=== PATIENT | male | born 1970 | race Caucasian/White ===

== ENCOUNTER 2019-12-21 19:22 | Emergency (ER) | payer SELFPAY ==
--- OUTSIDE RECORDS SUMMARY | 2019-12-21 19:42 | XMS REPORT | Continuity of Care Document ---
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 Onset: 07/01/2014 without complication Essential hypertension Onset: 12/17/2013 Arthropathy Onset: 12/17/2013 Social History Type Date Description Comments Sex Unknown ETOH Use Rarely consumes alcohol Tobacco Use Start: Unknown Patient is a current 3 times daily, Chews smoker, smokes every day Tobacco Daily Recreational Drug Use Denies Drug Use Exercise Type/Frequency Exercises regularly Allergies, Adverse Reactions, Alerts Active Allergies Reaction Severity Comments Date Penicillins 11/10/2018 Diphenhydramine 11/10/2018 Medications Active Medications SIG Qnty Indications Ordering Date Provider Cpap Mask And Supplies use nightly 1units Heron 02/28/2019 MD Manuel Device Diltiazem HCL ER Beads one daily 90caps I10 Heron 09/07/2018 360mg MD Manuel Caps ER 24HR Fluticasone Propionate 2 puffs each 1units Heron 03/10/2015 nare every in MD Manuel 50mcg/Act Suspension the morning Naproxen 1 by mouth 60tabs 885.0 Heron 01/25/2014 500mg Tablets twice a day MD Manuel Lisinopril-Hydrochloroth 1 by mouth 90tabs I10 Heron 12/17/2013 iazide every day MD Manuel 20-25mg Tablets Methylphenidate HCL 1 twice a day 60tabs F90.0 Heron 09/07/2013 20mg MD Manuel Tablets Immunizations CPT Code Status Date Vaccine Lot # [id number] Given 07/28/2011 Tdap - Tetanus/Diptheria/Acellular Pertussis Vital Signs Date Vital Result Comment 12/04/2019 8:10am Height 74 inches 6'2" Weight 280.19 lb Heart Rate 65 /min BP Systolic Sitting 138 mmHg BP Diastolic Sitting 60 mmHg Respiratory Rate 12 /min Body Temperature 98.7 F O2 % BldC Oximetry 97 % BMI (Body Mass Index) 36.0 kg/m2 09/07/2018 8:01am Weight 269.00 lb BP Systolic 144 mmHg BP Diastolic 96 mmHg Results Description No Information Available Procedures Description No Information Available Medical Devices Description No Information Available Encounters Description No Information Available Assessments Date Code Description Provider 12/04/2019 Z00.01 Encounter for general adult medical examination with NISHANT Hernandez abnormal findings 12/04/2019 I10 Essential (primary) hypertension NISHANT Hernandez 12/04/2019 F90.0 Attention-deficit hyperactivity disorder, NISHANT Hernandez predominantly inattentive type 12/04/2019 D48.5 Neoplasm of uncertain behavior of skin NISHANT Hernandez 12/04/2019 M65.339 Trigger finger, unspecified middle finger NISHANT Hernandez 12/04/2019 R94.31 Abnormal electrocardiogram [ECG] [EKG] NISHANT Hernandez 12/04/2019 R53.83 Other fatigue NISHANT Hernandez 12/04/2019 N52.9 Male erectile dysfunction, unspecified NISHANT Hernandez 12/04/2019 N40.0 Benign prostatic hyperplasia without lower urinary NISHANT Hernandez tract symptoms Plan of Treatment Future Appointment(s):03/05/2020 9:00 am - NISHANT Hernandez at [facility] - Helene Zhu PAZ00.01 Encounter for general adult medical examination with abnormal findingsNew Labs:Hemoglobin A1c (Glyco HGB), Ordered: 12/04/19TSH (Thyroid Stim Horm), Ordered: 12/04/19PSA Screening, Ordered: 12/04/19I10 Essential (primary) hypertensionNew Labs:Basic Metabolic Panel, Ordered: CBC Auto Diff, Ordered: 12/04/19Lipid Profile (Trig/Chol/HDL), Ordered: Liver Function Panel, Ordered: 12/04/19Testosterone Free & Total, Ordered : 12/04/19F90.0 Attention-deficit hyperactivity disorder, predominantly inattentive typeD48.5 Neoplasm of uncertain behavior of skinM65.339 Trigger finger, unspecified middle ndcsaoU51.31 Abnormal electrocardiogram [ECG] [EKG] Follow up:3 month 30 swwkzqjS24.83 Other qbtejhsD44.9 Male erectile dysfunction , ahomrsgnkuoC98.0 Benign prostatic hyperplasia without lower urinary tract symptoms Functional Status Functional Condition Comment Date Status BiPAP Active Mental Status Description No Information Available Referrals Description No Information Available
[2019-12-21] MEDS ORDERED: Ondansetron INJ* 2 MG/ML VIAL IV ONE (19:50)
[2019-12-21] MEDS ORDERED: NS 0.9% 1000 ML** 1,000 ML IV ONE (19:50)
[2019-12-21] MEDS ORDERED: HYDROmorphone INJ1* 1 MG/ML SYRINGE IV SLOW PU ONE ×3 (19:50→21:41)
--- NOTE | 2019-12-21 19:54 | ED ---
Complex/Multi-Sys Presentation - HPI Summary HPI Summary: This patient is a 48 year old M presenting to [facility] with a chief complaint of left sided pain from his L shoulder to his hip. He also reports 2 different episodes of vomiting. due to slip and fall at 1400 today 12/21/19. Symptoms aggravated by nothing. Symptoms alleviated by nothing. Patient reports he went to the [facility] and decided to leave and come here. Reports pain is getting worse. He denies any fevers, chills, headaches, and SOB. He has a PMHx of HTN. - History Of Current Complaint Chief Complaint: EDFall Time Seen by Provider: 12/21/19 19:45 Hx Obtained From: Patient Onset/Duration: Lasting Hours, Still Present Timing: Constant Aggravating Factor(s): nothing Alleviating Factor(s): nothing Associated Signs And Symptoms: Positive: Vomiting - Allergies/Home Medications Allergies/Adverse Reactions: Allergies Allergy/AdvReac Type Severity Reaction Status Date / Time diphenhydramine Allergy Unknown Verified 12/21/19 19:31 [From Benadryl] Reaction Details Penicillins Allergy Anaphylatic Verified 12/21/19 19:31 Shock PMH/Surg Hx/FS Hx/Imm Hx Previously Healthy: Yes Endocrine/Hematology History: Denies: Hx Diabetes Cardiovascular History: Denies: Hx Hypertension Sensory History: Denies: Hx Contacts or Glasses Opthamlomology History: Denies: Hx Contacts or Glasses - Cancer History Hx Chemotherapy: No Hx Radiation Therapy: No - Surgical History Surgical History: None - Immunization History Immunizations Up to Date: Yes Infectious Disease History: No Infectious Disease History: Denies: Traveled Outside the [place] in Last 30 Days - Family History Known Family History: Negative: Cardiac Disease, Hypertension, Diabetes - Social History Occupation: Employed Full-time Lives: With Family Alcohol Use: None Hx Substance Use: No Substance Use Type: Reports: None Hx Tobacco Use: No Smoking Status (MU): Never Smoked Tobacco Review of Systems Negative: Fever, Chills Negative: Shortness Of Breath Positive: Vomiting. Negative: Nausea Positive: Other - left sided pain from shoulder to hip Negative: Headache All Other Systems Reviewed And Are Negative: Yes Physical Exam - Summary Physical Exam Summary: Appearance: The patient is well-nourished in no acute distress and in no acute pain. Skin: The skin is warm and dry, and skin color reflects adequate perfusion. HEENT: The head is normocephalic and atraumatic. The pupils are equal and reactive. The conjunctivae are clear and without drainage. Nares are patent and without drainage. Mouth reveals moist mucous membranes, and the throat is without erythema and exudate. The external ears are intact. The ear canals are patent and without drainage. The tympanic membranes are intact. Neck: The neck is supple with full range of motion and non-tender. There are no carotid bruits. There is no neck vein distension. Respiratory: Chest is non-tender. Lungs are clear to auscultation and breath sounds are symmetrical and equal. Cardiovascular: Heart is regular rate and rhythm. There is no murmur or rub auscultated. There is no peripheral edema and pulses are symmetrical and equal. tender in left lateral chest wall and lower chest wall Abdomen: tender in left abdomen with some mild rebound, There are normal bowel sounds heard in all four quadrants and there is no organomegaly palpated. Musculoskeletal: There is no back tenderness noted. Extremities are non-tender with full range of motion. There is good capillary refill. There is no peripheral edema or calf tenderness elicited. Neurological: Patient is alert and oriented to person, place and time. The patient has symmetrical motor strength in all four extremities. Cranial nerves are grossly intact. Deep tendon reflexes are symmetrical and equal in all four extremities. Psychiatric: The patient has an appropriate affect and does not exhibit any anxiety or depression. Triage Information Reviewed: Yes Vital Signs On Initial Exam: Initial Vitals Temp Pulse Resp BP Pulse Ox 98.0 F 68 20 180/100 100 12/21/19 19:23 12/21/19 19:23 12/21/19 19:23 12/21/19 19:23 12/21/19 19:23 Vital Signs Reviewed: Yes Procedures - Sedation Patient Received Moderate/Deep Sedation with Procedure: No Diagnostics - Vital Signs Vital Signs Temp Pulse Resp BP Pulse Ox 12/21/19 19:23 98.0 F 68 20 180/100 100 - Laboratory Result Diagrams: 12/21/19 19:57 12/21/19 19:57 Lab Statement: Any lab studies that have been ordered have been reviewed, and results considered in the medical decision making process. - CT CT Chest CT Interpretation Completed By: Radiologist Summary of CT Findings: 1. Borderline aneurysmal dilatation of the ascending thoracic aorta measuring 40 mm. 2. Slight anterior wedge configuration of T11 and T12 which are likely chronic and may be developmental. 3. Minimal bibasilar fibro-atelectatic change. 4. Otherwise negative CT chest. CT A/P CT Interpretation Completed By: Radiologist Summary of CT Findings: 1. Large left renal subcapsular hematoma posteriorly with displacement and compression of renal parenchyma anteriorly. There is hemorrhagic infiltration within Gerota's fascia and hemorrhagic thickening of the anterior posterior pararenal fascia. 2. Unilateral spondylolysis of L5 on the right. 3. Otherwise negative CT abdomen/pelvis. Re-Evaluation - Re-Evaluation First Eval Re-Evaluation Time: 20:27 Change: Improved Comment: The pt's CT A/P shows a truamatic kidney rupture. The pt was informed of his condition and the POC moving forward which includes transfer to a higher level of care. Complex Multi-Symp Course/Dx Course Of Treatment: Mr. Blackburn came in with stable vitals about 5 or 6 hours after he took a fall from a standing position landing on his left side. He was in severe pain and he was brought immediately back, IV was initiated and bloods were sent to the lab. CT scan noncontrasted showed subcapsular hematoma around the left kidney with compression of the kidney. [facility] was contacted and auto accepted to in the emergency department. Patient was given some IV fluids here in the ambulance was contacted for transfer. - Diagnoses Provider Diagnoses: Kidney hematoma, Blunt abdominal trauma - Physician Notifications Discussed Care Of Patient With: Dedra Beltre Time Discussed With Above Provider: 20:31 Instructed by Provider To: Transfer - Critical Care Time Critical Care Time: 30-74 min Discharge ED - Sign-Out/Discharge Documenting (check all that apply): Patient Departure - Discharge Plan Condition: Stable Disposition: TRANS HIGHER LVL OF CARE FAC Referrals: No Primary Care Phys,NOPCP [Primary Care Provider] - - Billing Disposition and Condition Condition: STABLE Disposition: Trans Higher Lvl of Care Fac - Attestation Statements Document Initiated by Scribe: Yes Documenting Scribe: Levon Javier Provider For Whom Scribe is Documenting (Include Credential): Dr. Sly Mooney MD Scribe Attestation: Nancy Perez Marco DiSanto, scribed for Dr. Sly Mooney MD on 12/21/19 at 2048. Scribe Documentation Reviewed: Yes Provider Attestation: The documentation as recorded by the scribe, Levon Javier accurately reflects the service I personally performed and the decisions made by me, Dr. Sly Mooney MD Status of Scribe Document: Viewed Consult Consult: Dr. Tucker, ED physician, was consulted at 2038 and accepted the pt to [facility] for further care.
[2019-12-21 20:03] LABS: ABS Lymphocytes 1.1 10^3/ul (1.0-4.8); ABS Monocytes 0.7 10^3/ul (0-0.8); ABS Neutrophils 12.9 10^3/ul (1.5-7.7); Hematocrit 40 % (42-52); Hemoglobin 14.1 g/dL (14.0-18.0); Lymphocyte % 7.7 %; Mean Corpuscular HGB Conc 35 g/dL (31-36); Mean Corpuscular Hemoglobin 30 pg (27-31); Mean Corpuscular Volume 87 fL (80-94); Mean Platelet Volume 8.4 fL (7.4-10.4); Platelet Count 220 10^3/uL (150-450); Red Blood Count 4.63 10^6 /uL (4.18-5.48); Red Cell Distribution Width 14 % (10-15); White Blood Count 14.7 10^3/uL (3.5-10.8)
[2019-12-21 20:23] LABS: Troponin I 0.01 ng/mL (<0.03)
[2019-12-21 20:26] LABS: Albumin 4.9 g/dL (3.2-5.2); Albumin/Globulin Ratio 2.1 (1-3); BUN/Creatinine Ratio 17.4 (8-20); C Reactive Protein 2.25 mg/L (<8.01); Calcium 9.4 mg/dL (8.6-10.3); EGFR African American 81.4 (>60); EGFR Non-African American 67.3 (>60); Globulin 2.3 g/dL (2-4); Potassium 3.1 mmol/L (3.5-5.0); Total Bilirubin 0.6 mg/dL (0.2-1.0); Total Protein 7.2 g/dL (6.4-8.9)
[2019-12-21 22:01] VITALS: BP 140/98
== END 2019-12-21 21:59 | disposition short-term general hospital (02) ==
LOC: ED 19:22
DX: S37.019A Minor contusion of unspecified kidney, initial encounter (principal); S39.91XA Unspecified injury of abdomen, initial encounter; R11.10 Vomiting, unspecified; M25.552 Pain in left hip; R94.31 Abnormal electrocardiogram [ECG] [EKG]; W19.XXXA Unspecified fall, initial encounter; Y92.9 Unspecified place or not applicable; Z88.0 Allergy status to penicillin
CPT/HCPCS: 36415; 71250; 74176; 80053; 83605; 83690; 84484; 85025; 85610; 86140; 86850; 86900; 86901; 93005; 96361; 96374; 96375; 96376; 99283; J1170; J2405